=== PATIENT | male | born 1995 | race Caucasian/White ===

== ENCOUNTER 2017-04-23 05:18 | Emergency (ER) | payer OTHER ==
[2017-04-23] MEDS ORDERED: ONDANSETRON 4 MG TAB.RAPDIS ONE (05:39)
[2017-04-23] MEDS ORDERED: ONDANSETRON 4 MG TAB.RAPDIS PO ONE (05:40)
--- NOTE | 2017-04-23 05:45 | ERNOTE ---
Headache ER HPI - General Presenting Symptoms: headache Time Seen by Provider: 04/23/17 05:32 Source: patient Exam Limitations: no limitations - Immun/Allergies/Home Medications Immunizations: IMMUNIZATION HX Immunizations Up to Date Yes History of Influenza Vaccine No Hx Pneumococcal Vaccination No Allergies/Adverse Reactions: Allergies No Known Allergies Allergy (Verified 04/17/16 09:02) Home Medications: HOME MEDICATIONS Benzocaine [Orabase] 1 appl MM QID 04/23/17 [Last Taken Unknown] valACYclovir HCL [Valtrex] 1,000 mg PO TID 04/23/17 [Last Taken Unknown] - History of Present Illness Narrative: Here for left sided headache which began two hours ago and woke pt up from sleep. Feels nauseated but has not vomited. Has taken Naprosyn and Ibuprofen with no help. Headache is left sided and pounding. "just like my other one" Review of Systems - Review of Systems Constitutional: Present: no symptoms reported EYE: Present: no symptoms reported ENT: Present: no symptoms reported Respiratory: Present: no symptoms reported Cardiology: Present: no symptoms reported Gastrointestinal/Abdominal: Present: no symptoms reported Genitourinary: Present: no symptoms reported Musculoskeletal: Present: no symptoms reported Neurological: Present: headache - Patient's Past Medical History Patient History - Medical: No pertinent hx Patient History - Cardiac/Respiratory: No pertinent hx Patient History - Cancer: No Hx of Cancer Patient History - Surgical Procedures: No surgical history Patient History - Other: None - Family History Mother Family History - Medical: Anxiety Family History - Cardiac/Respiratory: Hypertension - Social History Living Situations: parents Abuse History: No History of abuse Psych History: No pertinent hx Smoking Status: Current every day smoker Have you smoked in the past 12 months: Yes Do you dip or chew tobacco: No Alcohol Use: none Drug Use: none - Immunizations Immunizations Up to Date: Yes Hx Pneumococcal Vaccination: No History of Influenza Vaccine: No Physical Exam - Physical Exam General Appearance: Present: wd/wn, alert, no apparent distress Head Exam: Present: normal inspection Ears, Nose, Throat: Present: normal ENT inspection, normal pharynx Neck: Present: normal inspection, nontender Respiratory: Present: no respiratory distress, normal breath sounds, no accessory muscle use Cardiovascular/Chest: Present: regular rate, rhythm, no murmur Neurological Exam: Present: alert, oriented, normal mood/affect - pt is uncomfortable and states that he has a headache Skin Exam: Present: normal color ED Progress - Results and Orders Patient's Lab Results:: I have reviewed the patient's lab results. - Vital Signs Patient's Vital Signs:: I have reviewed the patient's vital signs. Vital Signs: Vital Signs 04/23/17 05:20 Temperature 37.2 C Pulse Rate 88 Respiratory 18 Rate Blood Pressure 136/79 O2 Sat by Pulse 96 Oximetry - Progress/Reassessment Chief Complaint: Headache Departure Clinical Impression: Migraine headache Qualifiers: Migraine type: other Status migrainosus presence: without status migrainosus Intractability: not intractable Qualified Code(s): G43.809 - Other migraine, not intractable, without status migrainosus - Departure Disposition: Home self-care Condition: Good Instructions: Migraine Headache, [id number]
[2017-04-23] MEDS ORDERED: KETOROLAC TROMETHAMINE 60 MG/2 ML VIAL IM ONE ×2 (05:50)
[2017-04-23 05:54] LABS: Cocaine Ur Negative (NEGATIVE); Urine Barbiturate Negative (NEGATIVE); Urine Benzodiazepines Negative (NEGATIVE); Urine Opiates Negative (NEGATIVE); Urine PCP Negative (NEGATIVE)
[2017-04-23 05:56] LABS: Urine THC Positive (NEGATIVE)
[2017-04-23 06:18] VITALS: BP 109/62
== END 2017-04-23 06:19 | disposition home or self-care (01) ==
LOC: ER 05:18
DX: G43.809 Other migraine, not intractable, without status migrainosus (principal); F17.200 Nicotine dependence, unspecified, uncomplicated